=== PATIENT | male | born 1985 | race Caucasian/White ===

== ENCOUNTER 2017-10-30 16:27 | Emergency (ER) | payer OTHER ==
[~2017-10-30 16:27] MED LIST: HUMI SQ; HUMULIN R100 U/1 M1; LANTUS SOLOS100 U/M1; LEVEMIR100 U/M1 SQ; LISINOPRIL10 MG PO; PROTONIX20 MG; REG5
[2017-10-30 16:46] VITALS: BP 124/69
== END 2017-10-30 18:09 | disposition home or self-care (01) ==
LOC: ED 16:27
DX: H10.9 Unspecified conjunctivitis (principal); E11.9 Type 2 diabetes mellitus without complications